=== PATIENT | male | born 1960 | race Caucasian/White ===

== ENCOUNTER 2017-06-29 10:56 | Emergency (ER) | payer OTHER ==
[~2017-06-29] VITALS: Ht 182.9 cm; Wt 96.7 kg
[2017-06-29] MEDS ORDERED: MEDROL DOSEPAK4 MG PO (15:40)
[2017-06-29] MEDS ORDERED: SKELAXIN800 MG PO (15:40)
[2017-06-29] MEDS ORDERED: NORCO 5/3251 TABLET PO (15:40)
[2017-06-29 15:49] VITALS: BP 137/84
== END 2017-06-29 15:50 | disposition home or self-care (01) ==
LOC: RME 10:56 → EME 10:56 → RME 15:50
DX: M48.02 Spinal stenosis, cervical region (principal); M54.12 Radiculopathy, cervical region
CPT/HCPCS: 72125; 93005; 99281; 99284